=== PATIENT | female | born 1995 | race Caucasian/White ===

== ENCOUNTER 2018-04-20 12:35 | Outpatient (CLI) | payer BC, OTHER ==
--- NOTE | 2018-04-20 18:25 | NM ---
HEPATOBILIARY SCAN: 04/20/18 HISTORY: Right upper quadrant pain. TECHNIQUE: Following the intravenous administration of 5.4 millicuries technetium 99m labeled Mebrofenin, anteri or planar imaging is obtained over 60 minutes. Upon visualization of the gallbladder, the patient ing ested 8 oz of Ensure to calculate the gallbladder ejection fraction. FINDINGS: There is prompt radiotracer activity within the liver on post injection imaging. Early gallbladder fi lling is seen by 5 minutes. Biliary activity is seen by 5 minutes as well. Small bowel activity is se en at 15 minutes. Gallbladder ejection fraction is 61%, within normal limits. IMPRESSION: Unremarkable hepatobiliary scan. Normal gallbladder ejection fraction. POS: [facility]
== END 2018-04-20 12:36 | disposition home or self-care (01) ==
LOC: NM 12:35
PROVIDERS: ATTEND Family Medicine
DX: R10.11 Right upper quadrant pain (principal)
CPT/HCPCS: 78227; A9537

== ENCOUNTER 2018-11-08 12:05 | Outpatient (CLI) | payer OTHER ==
--- NOTE | 2018-11-08 12:51 | RAD ---
RADIOGRAPH CHEST 2 VIEWS: DATE: 11/08/2018 HISTORY: 23-year-old female with "abnormal finding of the lung field R 91.8" COMPARISON: None available. FINDINGS: The lungs are clear. The cardiomediastinal silhouette and hilar shadows appear normal. There is no pl eural effusion or pneumothorax. No osseous abnormality is identified. IMPRESSION: Normal
== END 2018-11-08 12:06 | disposition home or self-care (01) ==
LOC: BICRAD 12:05
PROVIDERS: ATTEND Family Medicine
DX: Z00.00 Encounter for general adult medical examination without abnormal findings (principal); R91.8 Other nonspecific abnormal finding of lung field
CPT/HCPCS: 71046